=== PATIENT | female | born 1995 | race Caucasian/White ===

== ENCOUNTER 2018-05-25 08:43 | Emergency (ER) | payer BC, OTHER ==
[2018-05-25 09:43] LABS: ADD MAN DIFF? NO
[2018-05-25 09:45] LABS: BASOPHILS % 0.5 % (0.0-2.0); EOSINOPHILS % 0.2 % (0.0-7.0); HEMATOCRIT 41.9 % (37.0-47.0); HEMOGLOBIN 14.1 g/dl (12.0-16.0); LYMPHOCYTES # 2.5 10^3/ul (0.8-2.9); MEAN CORPUSCULAR HEMOGLOBIN 29.4 pg (29.0-33.0); MEAN CORPUSCULAR HGB CONC 33.7 g/dl (32.0-37.0); MEAN CORPUSCULAR VOLUME 87.5 fl (72.0-104.0); MEAN PLATELET VOLUME 9.6 fl (7.4-10.4); MONOCYTE # 0.7 10^3/ul (0.3-0.9); MONOCYTES % 7.6 % (0.0-13.0); NEUTROPHIL # 5.5 10^3/ul (1.6-7.5); NEUTROPHILS % 62.4 % (30.0-74.0); PLATELET COUNT 409 10^3/UL (140-415); RED BLOOD COUNT 4.79 10^6/ul (4.20-5.40); RED CELL DISTRIBUTION WIDTH 12.3 % (11.5-14.5)
[2018-05-25 09:45] LABS: WHITE BLOOD COUNT 8.7 10^3/ul (4.8-10.8)
[2018-05-25] MEDS: SOD CHLORIDE 0.9% 1,000 ML IV (09:46)
[2018-05-25] MEDS: LORAZEPAM 2 MG INJ IV (09:47)
[2018-05-25 10:05] LABS: ALANINE AMINOTRANSFERASE 29 IU/L (13-69); ALBUMIN 5.1 g/dl (3.3-4.9); ALBUMIN/GLOBULIN RATIO 1.54; ALKALINE PHOSPHATASE 69 IU/L (42-121); ANION GAP 20 (8-16); ASPARTATE AMINO TRANSFERASE 19 IU/L (15-46); BILIRUBIN,INDIRECT 0.6 mg/dl (0-1.1); BILIRUBIN,TOTAL 0.6 mg/dl (0.2-1.3); BLOOD UREA NITROGEN 8 mg/dl (7-20); CALCIUM 9.8 mg/dl (8.4-10.2); CARBON DIOXIDE 24 mmol/L (21-31); CHLORIDE 102 mmol/L (97-110); CREATININE 0.58 mg/dl (0.44-1.00); GLUCOSE 100 mg/dl (70-220); POTASSIUM 3.9 mmol/L (3.5-5.1); SODIUM 142 mmol/L (135-144); TOTAL PROTEIN 8.4 g/dl (6.1-8.1)
[2018-05-25 10:13] LABS: INR 1.09; PROTIME 14.3 Sec (11.9-14.9); PT RATIO 1.1
[2018-05-25 10:14] LABS: PARTIAL THROMBOPLASTIN TIME 31.1 Sec (25.0-35.0)
[2018-05-25 10:16] LABS: TROPONIN-I < 0.012 ng/ml (0.000-0.120)
[2018-05-25 10:44] LABS: ADD UMIC NO; UR ASCORBIC ACID NEGATIVE (NEGATIVE); UR BILIRUBIN (Dip) NEGATIVE (NEGATIVE); UR BLOOD (Dip) NEGATIVE (NEGATIVE); UR CLARITY SLIGHTLY CLOUDY (CLEAR); UR COLOR YELLOW (YELLOW); UR GLUCOSE (Dip) NEGATIVE (NEGATIVE); UR KETONES (Dip) 1+ mg/dL (NEGATIVE); UR LEUKOCYTE ESTERASE (Dip) NEGATIVE Leu/ul (NEGATIVE); UR MUCUS FEW /HPF (NONE SEEN); UR NITRITE (Dip) NEGATIVE (NEGATIVE); UR RBC 0 /HPF (0-5); UR SPECIFIC GRAVITY (Dip) 1.017 (1.003-1.030); UR SQUAMOUS EPITHELIAL CELL FEW /HPF (FEW); UR TOTAL PROTEIN (Dip) NEGATIVE (NEGATIVE); UR UROBILINOGEN (Dip) NEGATIVE (NEGATIVE); UR WBC 2 /HPF (0-5)
== END 2018-05-25 12:34 | disposition home or self-care (01) ==
LOC: FTE 08:43
DX: O99.89 Other specified diseases and conditions complicating pregnancy, childbirth and the puerperium (principal); R20.0 Anesthesia of skin; R06.02 Shortness of breath; E66.9 Obesity, unspecified; Z3A.00 Weeks of gestation of pregnancy not specified; Z68.41 Body mass index [BMI] 40.0-44.9, adult
CPT/HCPCS: 70450; 71045; 76801; 76817; 80053; 81001; 81003; 81025; 84484; 84702; 85025; 85610; 85730; 87086; 93005; 96374; 99285-25

== ENCOUNTER 2018-07-01 14:57 | Day surgery (SDC) | payer BC ==
[~2018-07-01 14:57] MED LIST: PROPOFOL 200 MG INJ; ROCURONIUM 50 MG INJ
[2018-07-01 16:06] LABS: ADD MAN DIFF? NO
[2018-07-01 16:24] LABS: BASOPHILS % 0.3 % (0.0-2.0); EOSINOPHILS % 0.4 % (0.0-7.0); HEMATOCRIT 39.4 % (37.0-47.0); HEMOGLOBIN 13.3 g/dl (12.0-16.0); LYMPHOCYTES # 2.8 10^3/ul (0.8-2.9); LYMPHOCYTES % 27.7 % (18.0-55.0); MEAN CORPUSCULAR HEMOGLOBIN 29.1 pg (29.0-33.0); MEAN CORPUSCULAR HGB CONC 33.8 g/dl (32.0-37.0); MEAN CORPUSCULAR VOLUME 86.2 fl (72.0-104.0); MEAN PLATELET VOLUME 9.7 fl (7.4-10.4); MONOCYTE # 0.7 10^3/ul (0.3-0.9); MONOCYTES % 6.9 % (0.0-13.0); NEUTROPHIL # 6.5 10^3/ul (1.6-7.5); NEUTROPHILS % 64.3 % (30.0-74.0); PLATELET COUNT 403 10^3/UL (140-415); RED BLOOD COUNT 4.57 10^6/ul (4.20-5.40); RED CELL DISTRIBUTION WIDTH 12.8 % (11.5-14.5)
[2018-07-01 16:24] LABS: WHITE BLOOD COUNT 10.1 10^3/ul (4.8-10.8)
[2018-07-01 16:27] LABS: INR 1.09; PROTIME 14.2 Sec (11.9-14.9); PT RATIO 1.1
[2018-07-01 16:28] LABS: PARTIAL THROMBOPLASTIN TIME 29.7 Sec (25.0-35.0)
[2018-07-01 16:38] LABS: ANION GAP 13 (8-16); BLOOD UREA NITROGEN 8 mg/dl (7-20); CALCIUM 9.6 mg/dl (8.4-10.2); CARBON DIOXIDE 23 mmol/L (21-31); CHLORIDE 105 mmol/L (97-110); CREATININE 0.46 mg/dl (0.44-1.00); GLUCOSE 93 mg/dl (70-220); POTASSIUM 3.7 mmol/L (3.5-5.1); SODIUM 137 mmol/L (135-144)
[2018-07-01] MEDS ORDERED: FENTAnyl 50 MCG/ML VIAL ×2 (17:07→18:15)
[2018-07-01] MEDS ORDERED: PROPOFOL 20 ML (17:07)
[2018-07-01] MEDS ORDERED: MIDAZOLAM 1 MG/ML 2 ML INJ (17:07)
[2018-07-01] MEDS ORDERED: METOCLOPRAMIDE 10 MG INJ (17:41)
[2018-07-01] MEDS ORDERED: DEXAMETHASONE 4 MG/ML 1 ML INJ (17:41)
[2018-07-01] MEDS ORDERED: KETOROLAC 30 MG INJ (17:41)
[2018-07-01] MEDS ORDERED: ONDANSETRON 4 MG INJ ×2 (17:41→18:15)
[2018-07-01] MEDS ORDERED: OXYTOCIN 10 UNIT INJ (17:43)
[2018-07-01] MEDS ORDERED: PHENYLephrine (100 MCG/ML) 5ML SYG (17:43)
[2018-07-01] MEDS ORDERED: SUGAMMADEX SODIUM 200 MG/2 ML VIAL IV (17:58)
[2018-07-01] MEDS: ONDANSETRON 4 MG INJ IV (18:23)
[2018-07-01] MEDS: FENTAnyl 50 MCG/ML VIAL IV ×2 (18:23→18:56)
[2018-07-01] MEDS ORDERED: DIPHENHYDRAMINE 50 MG INJ IV (18:30)
[2018-07-01] MEDS ORDERED: OXYCODONE/ACETAMINOPHEN (5/325) TAB PO (18:30)
[2018-07-01] MEDS ORDERED: FENTAnyl 50 MCG/ML VIAL IV (18:30)
[2018-07-01] MEDS ORDERED: HYDROmorphONE 1 MG/5 ML IV SYRINGE IV ×3 (18:30)
[2018-07-01] MEDS ORDERED: EPHEDrine SULFATE 50 MG/5 ML SYG IV (18:30)
[2018-07-01] MEDS ORDERED: MEPERIDINE 25 MG INJ IV (18:30)
[2018-07-01] MEDS ORDERED: METOCLOPRAMIDE 10 MG INJ IV (18:30)
== END 2018-07-01 19:40 | disposition home or self-care (01) ==
LOC: SDS 14:57
DX: O02.1 Missed abortion (principal)
CPT/HCPCS: 59820; 71045; 80048; 85025; 85610; 85730

== ENCOUNTER 2019-01-08 05:50 | Day surgery (SDC) | payer BC, MEDICAID ==
[2019-01-08] MEDS ORDERED: DESFLURANE 15 MIN (07:00)
[2019-01-08] MEDS ORDERED: CEFAZOLIN 1 GM INJ (07:00)
[2019-01-08] MEDS ORDERED: ROCURONIUM 50 MG INJ (07:00)
[2019-01-08] MEDS ORDERED: FAMOTIDINE 20 MG INJ (07:07)
[2019-01-08] MEDS ORDERED: ONDANSETRON 4 MG INJ (07:07)
[2019-01-08] MEDS ORDERED: SCOPOLAMINE 1.5 MG PATCH (07:07)
[2019-01-08 07:26] LABS: ADD MAN DIFF? NO
[2019-01-08 07:29] LABS: WHITE BLOOD COUNT 7.9 10^3/ul (4.8-10.8)
[2019-01-08 07:29] LABS: BASOPHILS % 0.1 % (0.0-2.0); HEMATOCRIT 41.3 % (37.0-47.0); HEMOGLOBIN 14.1 g/dl (12.0-16.0); LYMPHOCYTES # 1.6 10^3/ul (0.8-2.9); LYMPHOCYTES % 20.5 % (15.0-51.0); MEAN CORPUSCULAR HEMOGLOBIN 29.7 pg (29.0-33.0); MEAN CORPUSCULAR HGB CONC 34.1 g/dl (32.0-37.0); MEAN CORPUSCULAR VOLUME 86.9 fl (82.0-101.0); MEAN PLATELET VOLUME 9.8 fl (7.4-10.4); MONOCYTE # 0.3 10^3/ul (0.3-0.9); MONOCYTES % 4.3 % (0.0-11.0); NEUTROPHIL # 5.9 10^3/ul (1.6-7.5); NEUTROPHILS % 74.7 % (39.0-77.0); PLATELET COUNT 398 10^3/UL (140-415); RED BLOOD COUNT 4.75 10^6/ul (4.20-5.40); RED CELL DISTRIBUTION WIDTH 12.5 % (11.5-14.5)
[2019-01-08] MEDS ORDERED: PROPOFOL 20 ML (07:29)
[2019-01-08] MEDS ORDERED: LIDOCAINE 2% (SDV) 5 ML INJ (07:29)
[2019-01-08] MEDS ORDERED: SUCCINYLCHOLINE CHLORIDE 100 MG/5 ML SYG IV (07:29)
[2019-01-08] MEDS ORDERED: DEXAMETHASONE 4 MG/ML 5 ML INJ (07:30)
[2019-01-08] MEDS ORDERED: METOCLOPRAMIDE 10 MG INJ (07:30)
[2019-01-08] MEDS ORDERED: PHENYLephrine (100 MCG/ML) 5ML SYG (07:56)
[2019-01-08] MEDS ORDERED: SUGAMMADEX SODIUM 200 MG/2 ML VIAL IV (08:13)
[2019-01-08] MEDS ORDERED: FENTAnyl 50 MCG/ML VIAL (08:35)
[2019-01-08] MEDS ORDERED: MEPERIDINE 100 MG INJ (08:40)
[2019-01-08] MEDS ORDERED: HYDROmorphONE 1 MG/5 ML IV SYRINGE IV ×3 (09:00)
[2019-01-08] MEDS ORDERED: PROCHLORPERAZINE 10 MG INJ IV (09:00)
[2019-01-08] MEDS ORDERED: OXYCODONE/ACETAMINOPHEN (5/325) TAB PO (09:00)
[2019-01-08] MEDS: ONDANSETRON 4 MG INJ IV (09:31)
[2019-01-08] MEDS: OXYCODONE/ACETAMINOPHEN (5/325) TAB PO (10:02)
== END 2019-01-08 10:50 | disposition home or self-care (01) ==
LOC: SDS 05:50
DX: O02.1 Missed abortion (principal); O99.211 Obesity complicating pregnancy, first trimester; E66.9 Obesity, unspecified; Z3A.09 9 weeks gestation of pregnancy
CPT/HCPCS: 59820; 85025; 86900; 86901; 88305